=== PATIENT | male | born 1990 | race African-American/Black ===

== ENCOUNTER 2022-02-06 19:22 | Emergency (ER) | payer SELFPAY | END 2022-02-06 20:28 | disposition home or self-care (01) | LOC: ERS 19:22 | DX: T16.1XXA Foreign body in right ear, initial encounter (principal) | CPT/HCPCS: 69210 ==

== ENCOUNTER 2022-06-25 12:29 | Emergency (ER) | payer SELFPAY | END 2022-06-25 15:17 | disposition home or self-care (01) | LOC: ERS 12:29 | DX: J06.9 Acute upper respiratory infection, unspecified (principal) | CPT/HCPCS: 99281 ==